=== PATIENT | male | born 1950 | race Asian ===

== ENCOUNTER 2016-12-02 18:09 | Inpatient (IN) | payer OTHER ==
[~2016-12-02] VITALS: Ht 160 cm; Wt 72.1 kg
[~2016-12-02 18:09] MED LIST: ADV250/50 INH; ASPIR 8181 MG PO; CHONDROITIN COM1 CAP PO; HYDROCHLOROTH12.5 M2 PO; LAC PO; LEVAQUIN500 MG PO; LISINOPRIL AND1 TA2 PO; LISINOPRIL20 MG PO; LISINOPRIL40 MG PO; MAGNESIUM250 M1 PO; MEDDP PO; METFORMIN HCL500 MG PO; MONTELUKAST SOD10 M1 PO; OMEGA 31000 MG PO; SIMVASTATIN40 M1 PO; THERAGRAN-M1 TA4 PO; VITAMIN C500 M2 PO; ZESTRIL30 MG PO
[2016-12-02 19:03] LABS: BASOPHIL % 0.3 % (0-2); PLATELET COUNT 333 x10^3mcL (130-400); RED CELL DISTRIBUTION WIDTH 13.7 % (11.5-14.5)
[2016-12-02 19:17] LABS: CALCIUM 9.1 mg/dL (8.5-10.1); CARBON DIOXIDE 27.7 mmol/L (21-32); CREATININE SERUM 1.3 mg/dL (0.7-1.3); POTASSIUM SERUM 3.8 mmol/L (3.5-5.1)
[2016-12-02 19:29] LABS: ALBUMIN 4.3 g/dL (3.4-5.0); BILIRUBIN TOTAL 0.3 mg/dL (0.20-1.00); TOTAL PROTEIN, SERUM 8.4 g/dL (6.4-8.2)
[2016-12-02 21:06] LABS: microscopic required? YES; urine erythrocyte TRACE (NEGATIVE)
[2016-12-02] MEDS ORDERED: ZESTRIL20 MG PO (21:51)
[2016-12-02] MEDS ORDERED: METFORMIN HCL500 MG PO (21:52)
[2016-12-02] MEDS ORDERED: SINGULAIR10 MG PO (21:52)
[2016-12-02] MEDS ORDERED: ZOCOR40 MG PO (21:52)
[2016-12-02] MEDS ORDERED: GOOD SENSE OMEP20 MG PO (21:53)
[2016-12-02 22:29] VITALS: BP 148/77
[2016-12-03 00:09] LABS: CHOLESTEROL/HDL RATIO 3.2; MAGNESIUM 2.5 mg/dL (1.8-2.4); PHOSPHOROUS 3.5 mg/dL (2.5-4.9)
[2016-12-03 06:04] VITALS: BP 110/77
[2016-12-03 06:25] LABS: BASOPHIL % 0.3 % (0-2); PLATELET COUNT 289 x10^3mcL (130-400); RED CELL DISTRIBUTION WIDTH 13.5 % (11.5-14.5)
[2016-12-03 06:31] LABS: CALCIUM 7.9 mg/dL (8.5-10.1); CARBON DIOXIDE 25.4 mmol/L (21-32); CHLORIDE SERUM 103 mmol/L (98-107); CREATININE SERUM 1.2 mg/dL (0.7-1.3); GFR1 > 60 mL/min; GLUCOSE SERUM 107 mg/dL (74-106); POTASSIUM SERUM 4.4 mmol/L (3.5-5.1); SODIUM SERUM 134 mmol/L (136-145)
[2016-12-03 10:26] VITALS: BP 106/63
[2016-12-03 12:59] VITALS: BP 113/69
[2016-12-03 14:37] VITALS: BP 113/69
== END 2016-12-03 15:38 | disposition home or self-care (01) | DRG 388 ==
LOC: ED 18:09 → DU 21:41
PROVIDERS: Emergency Medicine; ADMIT Family Medicine
DX: K56.60 Unspecified intestinal obstruction (principal); N17.0 Acute kidney failure with tubular necrosis; E87.1 Hypo-osmolality and hyponatremia; D68.69 Other thrombophilia; J98.11 Atelectasis; E11.65 Type 2 diabetes mellitus with hyperglycemia; E83.41 Hypermagnesemia; I12.9 Hypertensive chronic kidney disease with stage 1 through stage 4 chronic kidney disease, or unspecified chronic kidney disease; K57.30 Diverticulosis of large intestine without perforation or abscess without bleeding; E78.00 Pure hypercholesterolemia, unspecified; E11.22 Type 2 diabetes mellitus with diabetic chronic kidney disease; N28.1 Cyst of kidney, acquired; R31.9 Hematuria, unspecified; J45.909 Unspecified asthma, uncomplicated; N18.3 Chronic kidney disease, stage 3 (moderate); Z79.82 Long term (current) use of aspirin; Z82.49 Family history of ischemic heart disease and other diseases of the circulatory system; Z90.89 Acquired absence of other organs; Z68.28 Body mass index [BMI] 28.0-28.9, adult; Z79.84 Long term (current) use of oral hypoglycemic drugs
CPT/HCPCS: 83880; J1885; J2405; J7030; J7613; Q0092; Q9966; Q9967

== ENCOUNTER → 2018-09-09 | Outpatient (CLI) | payer OTHER ==
[~2018-09-09] MED LIST changes: +GOOD SENSE OMEP20 MG PO; +SINGULAIR10 MG PO; +ZESTRIL20 MG PO; +ZOCOR40 MG PO
[2018-09-09 07:53] LABS: BASOPHIL % 0.6 % (0-2); PLATELET COUNT 355 x10^3mcL (130-400); RED CELL DISTRIBUTION WIDTH 12.2 % (11.5-14.5)
[2018-09-09 08:31] LABS: ALBUMIN 4.1 g/dL (3.4-5.0); ALKALINE PHOSPHATASE 49 U/L (46-116); ALT/SGPT 40 U/L (16-63); AST/SGOT 19 U/L (15-37); BILIRUBIN DIRECT 0.15 mg/dL (0.0-0.2); BILIRUBIN TOTAL 0.46 mg/dL (0.20-1.00); CALCIUM 8.8 mg/dL (8.5-10.1); CARBON DIOXIDE 26.2 mmol/L (21-32); CHLORIDE SERUM 91 mmol/L (98-107); CHOLESTEROL 160 mg/dL (<200); CHOLESTEROL/HDL RATIO 4.1; CREATININE SERUM 1.2 mg/dL (0.7-1.3); GFR1 > 60 mL/min; GLUCOSE SERUM 114 mg/dL (74-106); HDL CHOLESTEROL 39 mg/dL (40-60); POTASSIUM SERUM 3.5 mmol/L (3.5-5.1); SODIUM SERUM 126 mmol/L (136-145); TOTAL PROTEIN, SERUM 7.9 g/dL (6.4-8.2); TRIGLYCERIDES 126 mg/dL (<150)
[2018-09-10 09:05] LABS: microalbumin:creatinine ratio 12.2 (0.0-30.0)
== END | disposition home or self-care (01) ==
LOC: LB 07:17
PROVIDERS: Internal Medicine
DX: Z00.00 Encounter for general adult medical examination without abnormal findings (principal)
CPT/HCPCS: 84153

== ENCOUNTER → 2018-12-28 | Outpatient (CLI) | payer OTHER | END | disposition home or self-care (01) | LOC: RD 11:44 | DX: M54.5 Low back pain (principal) ==

== ENCOUNTER → 2019-05-31 | Outpatient (CLI) | payer OTHER ==
[2019-05-31 08:09] LABS: BASOPHIL % 0.9 % (0-2); PLATELET COUNT 390 x10^3mcL (130-400); RED CELL DISTRIBUTION WIDTH 13.3 % (11.5-14.5)
[2019-05-31 08:41] LABS: CHLORIDE SERUM 90 mmol/L (98-107); SODIUM SERUM 127 mmol/L (136-145)
[2019-05-31 08:42] LABS: ALBUMIN 4.1 g/dL (3.4-5.0); ALKALINE PHOSPHATASE 60 U/L (46-116); ALT/SGPT 28 U/L (16-63); AST/SGOT 19 U/L (15-37); BILIRUBIN DIRECT 0.12 mg/dL (0.0-0.2); BILIRUBIN TOTAL 0.43 mg/dL (0.20-1.00); CALCIUM 8.9 mg/dL (8.5-10.1); CARBON DIOXIDE 25.6 mmol/L (21-32); CHOLESTEROL 172 mg/dL (<200); CHOLESTEROL/HDL RATIO 3.8; GFR1 > 60 mL/min; GLUCOSE SERUM 138 mg/dL (74-106); HDL CHOLESTEROL 45 mg/dL (40-60); TOTAL PROTEIN, SERUM 8.2 g/dL (6.4-8.2); TRIGLYCERIDES 151 mg/dL (<150)
[2019-06-01 09:08] LABS: microalbumin:creatinine ratio 218 (0-29)
== END | disposition home or self-care (01) ==
LOC: LB 07:24
PROVIDERS: Internal Medicine
DX: Z00.00 Encounter for general adult medical examination without abnormal findings (principal)
CPT/HCPCS: 84153